=== PATIENT | female | born 1935 | race Caucasian/White ===

== ENCOUNTER 2021-08-01 10:06 | Day surgery (SDC) | payer OTHER, MEDICARE, SELFPAY ==
[2021-07-30 10:25] LABS: BASOPHILS % (AUTO) 0.5 % (0.0-2.0); EOSINOPHILS % (AUTO) 1.1 % (0.0-4.0); HEMATOCRIT 35.1 % (36-48); HEMOGLOBIN 11.3 g/dL (12.0-16.0); LYMPHOCYTES # (AUTO) 1.1 K/uL (1.0-5.5); MEAN CORPUSCULAR HEMOGLOBIN 29 pg (27-31); MEAN CORPUSCULAR HGB CONC 32 % (32-36); MEAN CORPUSCULAR VOLUME 88 fL (79.0-98.0); MONOCYTES # (AUTO) 0.4 K/uL (0.0-1.0); MONOCYTES % (AUTO) 9.8 % (1.7-9.3); NEUTROPHILS # (AUTO) 2.7 K/uL (1.8-7.7); NEUTROPHILS % (AUTO) 62.6 % (40.0-70.0); PLATELET COUNT (AUTO) 177 K/uL (130-430); RED BLOOD CELL COUNT(AUTO) 3.98 MIL/uL (4.2-6.2); RED CELL DISTRIBUTION WIDTH 17.1 % (9.0-15.0); WHITE BLOOD COUNT (AUTO) 4.3 K/uL (4.8-10.8)
[2021-07-30 10:32] LABS: BILIRUBIN,URINE NEGATIVE (NEGATIVE); CLARITY/URINE CLEAR (CLEAR); COLOR,URINE YELLOW (YELLOW); GLUCOSE,URINE NEGATIVE (NEGATIVE); KETONES,URINE NEGATIVE (NEGATIVE); LEUKOCYTE ESTERASE ,URINE NEGATIVE (NEGATIVE); NITRITE, URINE NEGATIVE (NEGATIVE); PROTEIN URINE NEGATIVE (NEGATIVE); UROBILINOGEN,URINE 0.2 (0.2-1.0)
[2021-07-30 10:37] LABS: ANION GAP 6 (5-15); CALCIUM 8.5 mg/dL (8.4-11.0); CHLORIDE 101 mmol/L (98-107); CREATININE 1.06 mg/dL (0.55-1.30); GLUCOSE 86 mg/dL (70-99); POTASSIUM 4.7 mmol/L (3.5-5.1); SODIUM SERUM 132 mmol/L (136-145); UREA NITROGEN, BLOOD 33 mg/dL (8-21)
[2021-07-30 10:39] LABS: PROTHROMBIN TIME 9.9 SECS (9.5-12.5)
[2021-07-30 10:43] LABS: BLOOD, URINE TRACE (NEGATIVE)
[2021-07-30 11:29] LABS: BACTERIA,URINE FEW /HPF (None Seen)
[2021-07-30 11:30] LABS: WBC,URINE NONE SEEN /HPF (0-3)
[~2021-08-01] VITALS: Ht 165.1 cm; Wt 94.3 kg
[~2021-08-01 10:06] MED LIST: FOLI-43 PO; LEVO75TA7 PO; LINA145C PO; LIP20 PO; LOSA100T3 PO; PRO40 PO
[2021-08-01] MEDS ORDERED: METOCLOPRAMIDE HCL 10 MG/2 ML VIAL ONE (12:00)
[2021-08-01] MEDS ORDERED: fentaNYL CITRATE/PF 100 MCG/2 ML AMP ONE (12:00)
[2021-08-01] MEDS ORDERED: PROPOFOL 200MG/ 20ML VIAL (DIPRIVAN) IV ONE (12:00)
[2021-08-01] MEDS ORDERED: NS IRRIG SOLN 5000 ML IR ONE (12:00)
[2021-08-01] MEDS ORDERED: KETOROLAC TROMETHAMINE 30 MG VIAL ONE (12:00)
[2021-08-01] MEDS ORDERED: MIDAZOLAM HCL 5 MG/5 ML VIAL ONE (12:00)
[2021-08-01] MEDS ORDERED: DEXAMETHASONE SOD PHOSPHATE 4 MG/ML VIAL ONE (12:00)
[2021-08-01] MEDS ORDERED: ONDANSETRON HCL 4 MG/2 ML VIAL ONE (12:00)
[2021-08-01] MEDS ORDERED: LR 1,000 ML IV.SOLN IV ONE (12:00)
[2021-08-01] MEDS ORDERED: SEVOFLURANE 15 MIN GAS INH ONE (12:00)
[2021-08-01] MEDS ORDERED: ACETAMINOPHEN I.V. 1000 MG 100 ML IV ONE (12:23)
[2021-08-01] MEDS ORDERED: LR 1,000 ML IV SCH (12:45)
[2021-08-01] MEDS ORDERED: MEPERIDINE HCL/PF 25 MG/ML DISP.SYRIN IVP PRN (12:45)
[2021-08-01] MEDS ORDERED: ONDANSETRON HCL 4 MG/2 ML VIAL IVP PRN (12:45)
[2021-08-01] MEDS ORDERED: HYDROmorphone 1 MG/ML INJ. CARTRIDGE IVP PRN ×2 (12:45)
[2021-08-01] MEDS ORDERED: HYDROmorphone 1 MG/ML INJ. CARTRIDGE ONE (13:16)
[2021-08-01 18:31] VITALS: BP_SYST 156
== END 2021-08-01 18:15 | disposition home or self-care (01) ==
LOC: SDS 10:06 → SMU 10:17 → SDS 18:15
PROVIDERS: ATTEND Orthopaedic Surgery
DX: S83.282A Other tear of lateral meniscus, current injury, left knee, initial encounter (principal); M17.12 Unilateral primary osteoarthritis, left knee; I10 Essential (primary) hypertension; I48.91 Unspecified atrial fibrillation; K21.9 Gastro-esophageal reflux disease without esophagitis; G62.9 Polyneuropathy, unspecified; J45.909 Unspecified asthma, uncomplicated; Z88.0 Allergy status to penicillin; Z88.2 Allergy status to sulfonamides; Z88.8 Allergy status to other drugs, medicaments and biological substances; Z79.01 Long term (current) use of anticoagulants; X58.XXXA Exposure to other specified factors, initial encounter; Y93.89 Activity, other specified; Y92.89 Other specified places as the place of occurrence of the external cause; Y99.8 Other external cause status; Z20.822 Contact with and (suspected) exposure to COVID-19
CPT/HCPCS: 29881; 36415 ×2; 71046; 80048; 81000; 85025; 85610; 85730; 87426; 93005; J0131; J1100; J1170; J1885; J2250; J2405; J2704; J2765; J3010; J7120; U0003

== ENCOUNTER 2021-08-19 16:58 | Emergency (ER) | payer OTHER, MEDICARE ==
[~2021-08-19] VITALS: Ht 165.1 cm; Wt 93.0 kg
--- NOTE | 2021-08-19 17:06 | NUR ---
Placed in room 04 . 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 To gown for exam. Side rails up.
[2021-08-19 17:08] VITALS: BP_SYST 135
--- NOTE | 2021-08-19 17:15 | NUR ---
Assessed patient at bedside. Patient verbalizes relief from inhaler. Addendum: 08/19/21 at 1842 by [email or web address] Patient came in with complaints of shortness of breath.
--- NOTE | 2021-08-19 17:20 | NUR ---
Patient came in with shortness of breath.
--- NOTE | 2021-08-19 17:30 | NUR ---
MD at bedside to assess.
[2021-08-19 18:19] LABS: BASOPHILS % (AUTO) 0.5 % (0.0-2.0); EOSINOPHILS # (AUTO) 0.1 K/uL (0.0-0.4); EOSINOPHILS % (AUTO) 1.2 % (0.0-4.0); HEMATOCRIT 33.2 % (36-48); HEMOGLOBIN 10.8 g/dL (12.0-16.0); LYMPHOCYTES # (AUTO) 1.5 K/uL (1.0-5.5); LYMPHOCYTES % (AUTO) 27.7 % (20.5-51.5); MEAN CORPUSCULAR HEMOGLOBIN 29 pg (27-31); MEAN CORPUSCULAR HGB CONC 33 % (32-36); MEAN CORPUSCULAR VOLUME 88 fL (79.0-98.0); MONOCYTES # (AUTO) 0.7 K/uL (0.0-1.0); MONOCYTES % (AUTO) 11.9 % (1.7-9.3); NEUTROPHILS # (AUTO) 3.2 K/uL (1.8-7.7); NEUTROPHILS % (AUTO) 58.7 % (40.0-70.0); PLATELET COUNT (AUTO) 187 K/uL (130-430); RED BLOOD CELL COUNT(AUTO) 3.79 MIL/uL (4.2-6.2); RED CELL DISTRIBUTION WIDTH 16.9 % (9.0-15.0); WHITE BLOOD COUNT (AUTO) 5.5 K/uL (4.8-10.8)
[2021-08-19 18:51] LABS: ANION GAP 8 (5-15); CHLORIDE 105 mmol/L (98-107); GLUCOSE 111 mg/dL (70-99); SODIUM SERUM 138 mmol/L (136-145)
[2021-08-19 18:52] LABS: ALANINE AMINOTRANSFERASE 15 U/L (12-78); ASPARTATE AMINOTRANSFERASE 14 U/L (10-37); CREATININE 1.04 mg/dL (0.55-1.30); UREA NITROGEN, BLOOD 39 mg/dL (8-21)
[2021-08-19 19:01] LABS: TOTAL BILIRUBIN 0.3 mg/dL (0.0-1.0)
[2021-08-19 19:30] VITALS: BP_SYST 138
--- NOTE | 2021-08-19 19:32 | NUR ---
Patient given written and verbal discharge instructions and verbalizes understanding. ER MD discussed with patient the results and treatment provided. Patient in stable condition. ID arm band removed. No Rx given. Patient educated on pain management and to follow up with PMD. Pain Scale 0/10. Opportunity for questions provided and answered. Medication side effect fact sheet provided.
== END 2021-08-19 19:30 | disposition home or self-care (01) ==
LOC: SED 16:58
DX: J45.909 Unspecified asthma, uncomplicated (principal); I10 Essential (primary) hypertension; K21.9 Gastro-esophageal reflux disease without esophagitis; Z88.0 Allergy status to penicillin; Z88.5 Allergy status to narcotic agent; Z88.1 Allergy status to other antibiotic agents; Z79.899 Other long term (current) drug therapy
CPT/HCPCS: 36415; 71045; 80053; 83605; 83880; 85025; 93005; 99285